=== PATIENT | male | born 1975 | race Caucasian/White ===

== ENCOUNTER → 2021-03-20 | Outpatient (CLI) | payer OTHER ==
--- NOTE | 2021-03-20 13:02 | KCIC ---
STUDY: MRI of the right foot without contrast INDICATION: Right foot injury. Pain. COMPARISON: Right foot radiographs 02/26/2021 TECHNIQUE: Multiplanar MR imaging of the right foot performed without the use of intravenous or intra -articular contrast. FINDINGS: Bones: Edematous proximal phalanx of the fifth toe in the setting of a nondisplaced subacute fracture at the shaft/neck, image 12 series 7. It is difficult to discern if there is fracture extension into the IP joint. No acute or subacute fracture elsewhere throughout the imaged foot. Musculotendinous: No tendon tear or displacement. Normal bulk and signal of the intrinsic foot muscul ature. Ligaments: No evidence for capsuloligamentous disruption at the MTP joints or partially assessed inte rphalangeal joints. Normal Lisfranc ligament complex Miscellaneous: Mild soft tissue edema around the fifth proximal phalanx fracture. No large joint effu frannie. IMPRESSION: 1. Subacute, nondisplaced fracture of the shaft/neck region of the fifth proximal phalanx. No fract ure elsewhere throughout the imaged foot or significant arthrosis. 2. Intact tendons and major ligaments. Expected soft tissue edema surrounding the fifth proximal pha lanx fracture. Electronically signed by: KATYA WILSON MD (03/20/2021 1:00 PM) [id number]
== END ==
LOC: KCIC MRI 09:20
PROVIDERS: ATTEND Physician Assistant
DX: S99.921A Unspecified injury of right foot, initial encounter (principal); S92.514A Nondisplaced fracture of proximal phalanx of right lesser toe(s), initial encounter for closed fracture; M79.671 Pain in right foot; X58.XXXA Exposure to other specified factors, initial encounter; Y93.89 Activity, other specified; Y92.89 Other specified places as the place of occurrence of the external cause; Y99.8 Other external cause status
CPT/HCPCS: 73718